=== PATIENT | female | born 1940 ===

== ENCOUNTER → 2018-06-23 21:31 | Outpatient (REF) | payer MEDICARE, SELFPAY ==
[2018-06-23 22:20] LABS: Add Manual Diff / Slide Review NO; Basophils Percent Auto 0.7 % (0-2); Hematocrit 36.6 % (36-46); Hemoglobin 11.9 g/dL (12.0-16.0); Lymphocytes Percent Auto 17.9 % (25-40); Mean Corpuscular HGB Conc 32.4 % (30-36); Mean Corpuscular Hemoglobin 28.6 PG (26-34); Mean Corpuscular Volume 88.2 fL (80-100); Monocytes Percent Auto 6.4 % (3-14); Neutrophils Absolute Auto 5900 /uL (3000-5900); Platelet Count 255 X10^3/uL (150-400); Red Blood Cell Count 4.15 X10^6/uL (4.0-5.2); Red Cell Distribution Width 15.3 % (11.6-14.8); White Blood Cell Count 8.3 X10^3/uL (4.5-11.0)
[2018-06-23 22:24] LABS: Alanine Aminotransferase 20 IU/L (9-52); Albumin 3.9 g/dL (3.5-5.0); Albumin Globulin Ratio 1.3 (1.0-2.8); Alkaline Phosphatase 73 U/L (38-126); Aspartate Aminotransferase 19 IU/L (14-36); Bilirubin Total 0.5 mg/dL (0.2-1.3); Blood Urea Nitrogen 21 mg/dL (7-17); Calcium 9.2 mg/dL (8.4-10.2); Carbon Dioxide 34 mmol/L (22-32); Chloride 101 mmol/L (98-107); Cholesterol 151 mg/dL (140-199); Estimated Glomerular Filt Rate > 60.0 mL/min (>60); Gamma Glutamyl Transpeptidase 17 U/L (12-43); Glucose 89 mg/dL (80-110); HDL Cholesterol 44 mg/dL (40-60); HEMOLYSIS < 15 (0-50); LDL Cholesterol Calculated 74 mg/dL (<100); Lactate Dehydrogenase 425 U/L (313-618); Potassium 4.5 mmol/L (3.4-5.1); Sodium 145 mmol/L (137-145); Total Protein 6.9 g/dL (6.3-8.2); Triglycerides 165 mg/dL (35-150); Uric Acid 4.3 mg/dL (2.5-6.2)
[2018-06-23 22:45] LABS: High Sensitivity CRP - Cardiac 4.8 mg/L (1.0-3.0)
[2018-06-23 22:57] LABS: Free T3, Triiodothyronine Free 3.24 pg/mL (2.77-5.27); Free T4, Direct Thyroxine 1.07 ng/dL (0.78-2.19); Iron 42 ug/dL (37-170)
[2018-06-23 22:59] LABS: Ferritin 45.3 ng/mL (11.1-264)
[2018-06-23 23:16] LABS: Hemoglobin A1C% w Est Avg Glu 5.5 % (4.0-6.0)
[2018-06-23 23:23] LABS: Vitamin D 25 Hydroxy (D3) 13.8 ng/mL (30.0-100.0)
[2018-06-23 23:29] LABS: Vitamin B12 733 pg/mL (239-931)
[2018-06-23 23:51] LABS: Cortisol Random 3.34 ug/dL
[2018-06-25 15:45] LABS: Triiodothyronine T3 Total 97 ng/dL (76-181)
[2018-06-25 15:54] LABS: Progesterone < 0.5 ng/mL
[2018-06-26 15:18] LABS: Estradiol < 15 pg/mL
[2018-06-26 16:04] LABS: Selenium 120 mcg/L (63-160)
[2018-06-26 16:38] LABS: Zinc 89 mcg/dL (60-130)
[2018-06-27 11:10] LABS: Alpha-Tocopherol 9.3 mg/L (5.7-19.9); Gamma-Tocopherol 1.9 mg/L (< 4.4)
[2018-06-27 14:33] LABS: Dehydroepiandrosterone Sulfate 10 mcg/dL (7-177); Insulin Level Total 14.8 uIU/mL (2.0-19.6)
[2018-06-27 17:13] LABS: Homocysteine 13.7 umol/L (< 10.4)
[2018-06-27 19:00] LABS: Pregnenolone <10 ng/dL (22-237)
[2018-06-28 09:32] LABS: Albumin 3.6 g/dL (3.6-5.1); Sex Hormone Binding Globulin 52 nmol/L (14-73); Testosterone, Bioavailable 0.1 ng/dL (0.5-8.8); Testosterone, Total < 1 ng/dL (2-45); Testosterone,Free 0.1 pg/mL (0.3-5.0)
[2018-07-02 21:27] LABS: Triiodothyronine T3 Reverse 17 ng/dL (8-25)
== END ==
LOC: LAB 21:31
PROVIDERS: Visit Provider Internal Medicine
DX: G31.84 Mild cognitive impairment of uncertain or unknown etiology (principal); D50.9 Iron deficiency anemia, unspecified; D64.9 Anemia, unspecified; F33.1 Major depressive disorder, recurrent, moderate
CPT/HCPCS: 80053; 80061; 82306; 82525; 82533; 82607; 82627; 82670; 82728; 82746; 82977; 83036; 83090; 83525; 83540; 83615; 84144; 84255; 84439; 84446; 84480; 84481; 84482; 84550; 84630; 85025; 86140